=== PATIENT | male | born 1970 | race Caucasian/White ===

== ENCOUNTER 2022-01-11 17:16 | Emergency (ER) | payer SELFPAY ==
[2022-01-11] MEDS ORDERED: Cephalexin 250 MG CAP ONE (17:53)
[2022-01-11] MEDS ORDERED: Ciprofloxacin 500 MG TAB ONE (17:53)
== END 2022-01-11 17:55 | disposition home or self-care (01) ==
LOC: BURERS 17:16
DX: L08.9 Local infection of the skin and subcutaneous tissue, unspecified (principal)
CPT/HCPCS: 99283